=== PATIENT | male | born 1950 ===

== ENCOUNTER → 2021-05-31 12:26 | Outpatient (CLI) | payer OTHER | END | disposition home or self-care (01) | LOC: LAB 12:26 | PROVIDERS: ATTEND Urology | DX: N30.00 Acute cystitis without hematuria (principal) ==

== ENCOUNTER 2021-06-10 11:26 | Emergency (ER) | payer OTHER ==
[~2021-06-10] VITALS: Ht 180.3 cm; Wt 74.4 kg
[2021-06-10] MEDS ORDERED: FINASTERIDE5 MG PO (11:46)
[2021-06-10] MEDS ORDERED: TAMS0.4C PO (11:46)
[2021-06-10] MEDS ORDERED: SULFAMETHOXAZO1 EACH PO (11:47)
== END 2021-06-10 13:37 | disposition home or self-care (01) ==
LOC: ER 11:26
DX: R33.8 Other retention of urine (principal)

== ENCOUNTER → 2021-06-17 09:53 | Outpatient (CLI) | payer OTHER ==
[~2021-06-17 09:53] MED LIST: FINASTERIDE5 MG PO; SULFAMETHOXAZO1 EACH PO; TAMS0.4C PO
== END | disposition home or self-care (01) ==
LOC: LAB 09:53
PROVIDERS: ATTEND Urology
DX: N39.0 Urinary tract infection, site not specified (principal)